=== PATIENT | male | born 1985 | race Hispanic/Latino ===

== ENCOUNTER 2018-10-29 06:13 | Emergency (ER) | payer OTHER ==
[2018-10-29] MEDS ORDERED: FAMOTIDINE/PF 20 MG/2 ML VIAL IV ONE (06:41)
[2018-10-29] MEDS ORDERED: ONDANSETRON HCL 4 MG/2 ML VIAL ONE (06:41)
[2018-10-29 06:57] LABS: EOSINOPHILS % (AUTO) 3.1 % (0.0-8.0); HEMATOCRIT 47.9 % (42-54); LYMPHOCYTES % (AUTO) 23.5 % (21.0-51.0); MEAN CORPUSCULAR HGB CONC 35.7 g/dL (32.0-36.0); MONOCYTES % (AUTO) 4.5 % (3.0-13.0); NEUTROPHILS % (AUTO) 67.9 % (40.0-77.0); NUCLEATED RED BLOOD CELLS 0.1 % (0.0-0.19); PLATELET COUNT (AUTO) 320 K/uL (130-400); RED BLOOD CELL COUNT(AUTO) 5.51 MIL/uL (4.50-6.20); RED CELL DISTRIBUTION WIDTH 13.2 % (11.0-15.5); WHITE BLOOD COUNT (AUTO) 9.4 K/uL (4.8-10.8)
[2018-10-29 07:02] LABS: APPEARANCE,URINE Clear (CLEAR); BILIRUBIN,URINE Negative (NEGATIVE); COLOR,URINE Yellow (YELLOW); GLUCOSE, URINE (UA) 250 mg/dL (NEGATIVE); KETONES,URINE Negative (NEGATIVE); LEUKOCYTE ESTERASE ,URINE Negative (NEGATIVE); NITRATE,URINE Negative (NEGATIVE); OCCULT BLOOD,URINE Negative (NEGATIVE); PROTEIN,URINE Negative (NEGATIVE)
[2018-10-29 07:05] LABS: CREATININE 1.2 mg/dL (0.5-1.5); POTASSIUM 4.1 mmol/L (3.5-5.1)
[2018-10-29] MEDS ORDERED: HYOSCYAMINE SULFATE 0.125 MG TAB.SUBL SL ONE (07:09)
[2018-10-29 07:10] LABS: BILIRUBIN,TOTAL 0.4 mg/dL (0.2-1.0); TOTAL PROTEIN, SERUM 8.2 g/dL (6.0-8.3)
[2018-10-29] MEDS ORDERED: PANTOPRAZOLE 40 MG/VIAL IVP ONE (07:12)
[2018-10-29 07:46] LABS: BACTERIA,URINE Rare /HPF (None Seen); RBC,URINE 0-1 /HPF (0-1); SQUAMOUS EPITHELIAL CELL,UR Rare /HPF (0-2); WBC,URINE 0-1 /HPF (0-1)
[2018-10-29] MEDS ORDERED: PROMETHAZINE HCL 25 MG/ML 1ML AMPULE IM ONE (07:46)
== END 2018-10-29 09:40 | disposition home or self-care (01) ==
LOC: EDH 06:13
DX: E86.0 Dehydration (principal); R11.2 Nausea with vomiting, unspecified; Z98.890 Other specified postprocedural states; Z90.89 Acquired absence of other organs
CPT/HCPCS: 36415; 80053; 81001; 83690; 85025; 96365; 96375; 99284; C9113; J2405; J2550; J3490

== ENCOUNTER 2021-03-16 04:39 | Emergency (ER) | payer OTHER ==
[~2021-03-16] VITALS: Ht 172.7 cm; Wt 89.8 kg
[2021-03-16] MEDS ORDERED: TETRACAINE HCL 0.5% 4 ML OPHTH SOLN ONE (05:07)
[2021-03-16] MEDS ORDERED: FLUORESCEIN SODIUM 1 STRIP STRIP ONE (05:10)
[2021-03-16] MEDS ORDERED: KETO10 PO (08:07)
[2021-03-16] MEDS ORDERED: ERYTHROMYCIN BASE 0.5% OPHTH OINT 1 GM TUBE ONE (08:13)
[2021-03-16 08:30] VITALS: BP 124/78
== END 2021-03-16 08:29 | disposition home or self-care (01) ==
LOC: EDH 04:39
DX: H16.133 Photokeratitis, bilateral (principal); Z98.890 Other specified postprocedural states

== ENCOUNTER 2022-05-12 14:33 | Emergency (ER) | payer OTHER ==
[~2022-05-12] VITALS: Ht 172.7 cm; Wt 91.2 kg
[~2022-05-12 14:33] MED LIST: KETO10 PO
[2022-05-12 15:58] VITALS: BP 144/105
[2022-05-12] MEDS ORDERED: LIDOCAINE HCL 2% VISCOUS 15 ML UDCUP PO ONE (16:00)
[2022-05-12] MEDS ORDERED: ONDANSETRON 4MG TABLET PO ONE (16:00)
[2022-05-12] MEDS ORDERED: DICYCLOMINE HCL 10 MG/5 ML ML PO ONE (16:00)
[2022-05-12] MEDS ORDERED: FAMOTIDINE 20MG TAB PO ONE (16:00)
[2022-05-12] MEDS ORDERED: MAG/ALUM/SIMETH 30 ML UDCUP PO ONE (16:00)
[2022-05-12 16:03] LABS: EOSINOPHILS % (AUTO) 3.6 % (0.0-8.0); HEMATOCRIT 47.7 % (42-54); LYMPHOCYTES % (AUTO) 32.9 % (21.0-51.0); MEAN CORPUSCULAR HGB CONC 34.6 g/dL (32.0-36.0); MONOCYTES % (AUTO) 7.5 % (3.0-13.0); NEUTROPHILS % (AUTO) 54.8 % (40.0-77.0); PLATELET COUNT (AUTO) 339 K/uL (130-400); RED BLOOD CELL COUNT(AUTO) 5.68 MIL/uL (4.50-6.20); WHITE BLOOD COUNT (AUTO) 10.3 K/uL (4.8-10.8)
[2022-05-12 16:18] LABS: POTASSIUM 4.4 mmol/L (3.5-5.1)
[2022-05-12 16:22] LABS: ALBUMIN 3.9 g/dL (3.5-5.0); TOTAL PROTEIN, SERUM 7.9 g/dL (6.0-8.3)
[2022-05-12] MEDS ORDERED: ONDANSETRON ODT 4MG TAB ONE (16:39)
[2022-05-12 16:52] LABS: APPEARANCE,URINE CLEAR (CLEAR); BILIRUBIN,URINE NEGATIVE (NEGATIVE); COLOR,URINE YELLOW (YELLOW); GLUCOSE, URINE (UA) NEGATIVE (NEGATIVE); KETONES,URINE NEGATIVE (NEGATIVE); LEUKOCYTE ESTERASE ,URINE NEGATIVE Leu/uL (NEGATIVE); NITRATE,URINE NEGATIVE (NEGATIVE); OCCULT BLOOD,URINE NEGATIVE (NEGATIVE); PH,URINE 5.5 (5.0-8.0); PROTEIN,URINE 10 mg/dL (NEGATIVE); UROBILINOGEN,URINE 0.2 mg/dL (0.2-1.0)
[2022-05-12] MEDS ORDERED: DICY20TA2 PO (17:03)
[2022-05-12] MEDS ORDERED: FAMO-136 PO (17:03)
[2022-05-12 17:07] LABS: MUCUS,URINE RARE LPF (None Seen); RBC,URINE 0-1 /HPF (0-1); SQUAMOUS EPITHELIAL CELL,UR RARE /HPF (0-2); WBC,URINE 0-1 /HPF (0-1)
== END 2022-05-12 17:14 | disposition home or self-care (01) ==
LOC: EDH 14:33
DX: K29.70 Gastritis, unspecified, without bleeding (principal); K76.0 Fatty (change of) liver, not elsewhere classified; R03.0 Elevated blood-pressure reading, without diagnosis of hypertension; E66.9 Obesity, unspecified; Z68.30 Body mass index [BMI] 30.0-30.9, adult; Z79.899 Other long term (current) drug therapy; Z98.890 Other specified postprocedural states
CPT/HCPCS: 36415; 76705; 80053; 81001; 83690; 84484; 85025; 93005

== ENCOUNTER 2025-04-18 06:08 | Emergency (ER) | payer OTHER ==
[~2025-04-18] VITALS: Ht 167.6 cm; Wt 83.9 kg
[~2025-04-18 06:08] MED LIST changes: +DICY20TA2 PO; +FAMO-136 PO
--- NOTE | 2025-04-18 06:16 | NUR ---
REPORT TO KAYLEIGH CR
[2025-04-18] MEDS ORDERED: POLY10DR5 OP (06:29)
--- NOTE | 2025-04-18 06:32 | ERN ---
General Chief Complaint: Eye Problems Stated Complaint: LEFT EYE REDNESS IRRITATION Time Seen by MD: 06:25 History of Present Illness Initial Comments 39-year-old male no past medical history, who presents to emergency room with complaints of left eye erythema. Patient states he woke up earlier today with left eye redness. He states that he wears contacts however believes that when he was sliding down he was pushing his wrist on his eye when he is sleeping. He denies any extraocular movement pain. He denies any trauma to the eye. Denies any eye drainage. No similar symptoms in the past. No one at home with a six symptoms such as his. Allergies: Coded Allergies: No Known Drug Allergies (Unverified Allergy, Unknown, 10/29/18) Home Meds Active Scripts Dicyclomine HCl (Bentyl) 20 Mg Tab, 20 MG PO QID, #28 TAB Prov:AMBAR COLE 05/12/22 Famotidine (Pepcid) 20 Mg Tablet, 20 MG PO BID, #60 TAB Prov:AMBAR COLE 05/12/22 Ketorolac Tromethamine (Toradol) 10 Mg Tab, 10 MG PO TID, #7 TAB Prov:WALE ZAMORA MD 03/16/21 Past Medical History Past Medical History: No Pertinent History Medical History Other: Obesity Past Surgical History: Tonsillectomy, Other Surgical History Other: SHRAPNEL REMOVAL THOUGHOUT BODY (2012), SINUS Family History Family History: Negative Social History Social History: Negative, Lives with family Physical Exam General Appearance: (+) no apparent distress Head/Face Trauma: No Eye: bilateral eye normal inspection (Left eye with erythema on the conjunctiva), bilateral eye PERRL, bilateral eye EOMI Neck: (+) normal inspection, (+) supple Respiratory: (+) chest non-tender, (+) lungs clear Heart: (+) regular; (-) murmur Gastrointestinal: (+) soft, (+) non-tender MDM 39-year-old male with left eye conjunctivitis. We will give eyedrops and discharge home at this time. Advised on concerning signs and symptoms for which to return here in the emergency room. We will have patient follow up with the [facility] in the next week. All questions answered at this time. ED Course Vital Signs Date Time Temp Pulse Resp B/P (MAP) Pulse Ox O2 Delivery O2 Flow Rate FiO2 04/18/25 06:20 97.9 71 18 115/63 98 Room Air* 0 21 04/18/25 06:09 97.9 69 20 120/54 98 Room Air DX & DISP Disposition: Discharge Departure Impression: Primary Impression: Bacterial conjunctivitis of left eye Condition: Stable Scripts Polymyxin B Sulf/Trimethoprim (Polymyxin B-Tmp Eye Drops) 10,000 Unit-1 Mg/Ml Drops 1 DROP OP QID for 7 Days, #10 ML 0 Refills Prov: TAYLOR WHITLOCK MD 04/18/25 Referrals: SELF,REFERRAL (PCP) TAYLOR WHITLOCK MD Apr 18, 2025 06:32
[2025-04-18 06:48] VITALS: BP 121/68; PULSE 68; RESP 18; TEMP 97.8; O2SAT 98
== END 2025-04-18 06:50 | disposition home or self-care (01) ==
LOC: EDH 06:08
DX: H10.89 Other conjunctivitis (principal); E66.9 Obesity, unspecified; Z79.1 Long term (current) use of non-steroidal anti-inflammatories (NSAID); Z90.89 Acquired absence of other organs; Z68.29 Body mass index [BMI] 29.0-29.9, adult
CPT/HCPCS: 99283